=== PATIENT | male | born 1960 | race Caucasian/White ===

== ENCOUNTER → 2016-04-26 | Outpatient (CLI) | payer OTHER ==
[~2016-04-26] MED LIST: IOPAMIDOL (ISOVUE-300) 100 ML BTL IV ONE
== END ==
LOC: FIMAGING 08:28
PROVIDERS: ATTEND Internal Medicine
DX: Z03.89 Encounter for observation for other suspected diseases and conditions ruled out (principal); K59.00 Constipation, unspecified; N26.1 Atrophy of kidney (terminal); I70.0 Atherosclerosis of aorta; Z99.2 Dependence on renal dialysis
CPT/HCPCS: 74177; Q9967